=== PATIENT | male | born 1990 | race Hispanic/Latino ===

== ENCOUNTER 2017-12-02 19:56 | Emergency (ER) | payer OTHER ==
[2017-12-02 20:20] VITALS: BP 119/73; PULSE 56; RESP 18; TEMP 98.2; O2SAT 99
--- NOTE | 2017-12-02 20:41 | ED PDOC ---
Lower Extremity Pain/Injury Time Seen by Provider: 12/02/17 20:29 Chief Complaint (Nursing): Lower Extremity Problem/Injury Chief Complaint (Provider): right knee pain History Per: Patient History/Exam Limitations: no limitations Onset/Duration Of Symptoms: Hrs Current Symptoms Are (Timing): Still Present Additional Complaint(s): 27 y/o male presents with right knee pain x 1 hour. Patient states he was playing basketball and fell directly on his right knee and felt a "pop". Patient states he was unable to bear full weight on knee since fall. Immediately applied ice, and now states knee feels "numb". Denies deformity, limitation of movement. - Hip Description Of Injury: Fell - Knee Alleviating Factor(s): Ice Therapy Past Medical History Reviewed: Historical Data, Nursing Documentation, Vital Signs Vital Signs: Last Vital Signs Temp 98.2 F 12/02/17 20:18 Pulse 56 L 12/02/17 20:18 Resp 18 12/02/17 20:18 BP 119/73 12/02/17 20:18 Pulse Ox 99 12/02/17 20:18 - Medical History PMH: No Chronic Diseases - Surgical History Surgical History: No Surg Hx - Family History Family History: States: No Known Family Hx - Home Medications Home Medications: Ambulatory Orders Medication Instructions Recorded Ibuprofen [Motrin Tab] 1 tab PO Q6 PRN #20 tab 12/02/17 - Allergies Allergies/Adverse Reactions: Allergies Allergy/AdvReac Type Severity Reaction Status Date / Time No Known Allergies Allergy Verified 12/02/17 20:18 Review of Systems ROS Statement: Except As Marked, All Systems Reviewed And Found Negative Musculoskeletal: Positive for: Leg Pain (right knee) Physical Exam - Reviewed Nursing Documentation Reviewed: Yes Vital Signs Reviewed: Yes - Physical Exam Appears: Positive for: Well, Non-toxic, No Acute Distress Head Exam: Positive for: ATRAUMATIC, NORMAL INSPECTION, NORMOCEPHALIC Skin: Positive for: Normal Color Pulses-Dorsalis Pedis (L): 2+ Pulses-Dorsalis Pedis (R): 2+ Pulses-Post. Tibialis (L): 2+ Pulses-Post. Tibialis (R): 2+ Extremity: Positive for: Normal ROM, Tenderness (medial right knee with + mild swelling. FROM, pain with flexion. No varus/valgus stress. Distal NV, motor intact) Neurologic/Psych: Positive for: Alert, Oriented. Negative for: Motor/Sensory Deficits - ECG O2 Sat by Pulse Oximetry: 99 - Other Rad xray right knee X-Ray: Viewed By Me X-Ray Interpretation: no acute findings - Progress ED Course And Treament: xray, ibuprofen Patient educated on findings, placed in knee immobilizer. Advised RICE. Rx ibuprofen provided. Follow up ortho Return precautions given Disposition - Clinical Impression Clinical Impression: Right knee injury - Patient ED Disposition Is Patient to be Admitted: No Counseled Patient/Family Regarding: Studies Performed, Diagnosis, Need For Followup, Rx Given - Disposition Referrals: Ricky Burger III, MD [Staff Provider] - Disposition: Routine/Home Disposition Time: 21:41 Condition: STABLE Prescriptions: Ibuprofen [Motrin Tab] 1 tab PO Q6 PRN #20 tab PRN Reason: Pain, Moderate (4-7) Instructions: Internal Derangement of the Knee Forms: [facility] ([place]ian)
--- NOTE | 2017-12-03 09:16 | RAD ---
PROCEDURE: Right Knee Radiographs. HISTORY: fall, pain COMPARISON: None. FINDINGS: BONES: No acute fracture. JOINTS: Unremarkable. JOINT EFFUSION: None. OTHER FINDINGS: None. IMPRESSION: No demonstrated fracture or dislocation.
== END 2017-12-02 22:30 | disposition home or self-care (01) ==
LOC: H.ER 19:56
DX: S89.91XA Unspecified injury of right lower leg, initial encounter (principal); W19.XXXA Unspecified fall, initial encounter; Y92.310 Basketball court as the place of occurrence of the external cause